=== PATIENT | male | born 1995 | race Native Hawaiian/Other Pacific Islander ===

== ENCOUNTER 2017-11-26 18:01 | Emergency (ER) | payer OTHER ==
[2017-11-26 21:27] LABS: BASO % 0.5 % (0.0-1.0); EOS # 0.1 10^3/uL (0.0-0.50); EOS % 0.9 % (0.0-3.0); HEMATOCRIT 48.3 % (42.0-52.0); HEMOGLOBIN 16.5 g/dl (13.5-17.5); IMMATURE GRANULOCYTE % 0.2 % (0-3.0); LYMPH # 2.4 10^3/uL (1.5-6.5); LYMPH % 27.9 % (24.0-44.0); MEAN CORPUSCULAR HEMOGLOBIN 30.9 pg (27.0-33.0); MEAN CORPUSCULAR HGB CONC 34.2 g/dl (32.0-36.5); MEAN CORPUSCULAR VOLUME 90.4 fl (80.0-96.0); MONO # 1.3 10^3/uL (0.0-0.8); MONO % 14.4 % (0.0-5.0); NEUTROPHILS # 4.9 10^3/uL (1.8-7.7); NEUTROPHILS % 56.1 % (36.0-66.0); PLATELET COUNT, AUTOMATED 206 10^3/uL (150-450); RED BLOOD COUNT 5.34 10^6/uL (4.30-6.10); RED CELL DISTRIBUTION WIDTH 11.7 % (11.5-14.5); WHITE BLOOD COUNT 8.7 10^3/uL (4.0-10.0)
[2017-11-26] MEDS: NS 1,000 ML IV (21:30)
[2017-11-26] MEDS: ONDANSETRON 4MG/2ML VIAL (J2405) IV (21:30)
[2017-11-26] MEDS: KETOROLAC 30 MG/ML VIAL (J1885) IV (21:30)
[2017-11-26 21:51] LABS: CONTROL LINE MONO INT CTR LINE PRESENT; MONO SCRN NEGATIVE (NEGATIVE)
[2017-11-26 21:54] LABS: ERYTHROCYTE SEDIMENTATION RATE 4 mm/hr (0-15)
[2017-11-26 21:58] LABS: ANION GAP 8 MEQ/L (8-16); BLOOD UREA NITROGEN 12 MG/DL (7-18); C REACTIVE PROTEIN QUANTITATIV 2.13 MG/DL (0.00-0.30); CALCIUM LEVEL 9.3 MG/DL (8.5-10.1); CARBON DIOXIDE LEVEL 29 MEQ/L (21-32); CHLORIDE LEVEL 101 MEQ/L (98-107); CPK CREATINE PHOSPHOKINASE 104 U/L (39-308); GLOMERULAR FILTRATION RATE > 60.0 (>60); GLUCOSE, FASTING 83 MG/DL (70-100); POTASSIUM SERUM 4.1 MEQ/L (3.5-5.1); SODIUM LEVEL 138 MEQ/L (136-145)
== END 2017-11-26 23:35 | disposition home or self-care (01) ==
LOC: M ED 18:01
DX: M25.50 Pain in unspecified joint (principal); T50.B15A Adverse effect of smallpox vaccines, initial encounter; Y92.9 Unspecified place or not applicable; Y93.9 Activity, unspecified; R53.83 Other fatigue
CPT/HCPCS: J2405

== ENCOUNTER 2018-04-24 15:47 | Emergency (ER) | payer OTHER ==
[~2018-04-24] VITALS: Ht 172.7 cm; Wt 59.1 kg
[2018-04-24 15:47] VITALS: BP 129/60
[~2018-04-24 15:47] MED LIST: AUGM875T28 PO; NAPR-50 PO; TRIA1OI TOP
[2018-04-24] MEDS ORDERED: IBUP200C25 PO (15:57)
[2018-04-24] MEDS ORDERED: NYST50SS PO (17:00)
== END 2018-04-24 17:36 | disposition home or self-care (01) ==
LOC: M ED 15:47
DX: K12.0 Recurrent oral aphthae (principal)

== ENCOUNTER 2018-09-26 12:30 | Emergency (ER) | payer OTHER ==
[~2018-09-26] VITALS: Ht 172.7 cm; Wt 62.6 kg
[~2018-09-26 12:30] MED LIST changes: +IBUP200C25 PO; -NAPR-50 PO; +NAPR-837 PO; +NYST50SS PO
[2018-09-26] MEDS ORDERED: LIDOCAINE 2% MDV 20 ML VIAL SC ONE (16:45)
--- NOTE | 2018-09-26 17:28 | REPVR ---
EXAM: CT Orbits Without Contrast EXAM DATE/TIME: 09/26/2018 5:05 PM CLINICAL HISTORY: 23 years old, male; Injury or trauma; Injury history: Playing football and hit heads with another person; Initial encounter; Blunt trauma (contusions or hematomas) and laceration; Orbit/periorbital; Right; Without residual foreign body; Additional info: Hit eye TECHNIQUE: Imaging protocol: Computed tomography images of the orbits without contrast. Coronal and sagittal reformatted images were created and reviewed. Radiation optimization: All CT scans at this facility use at least one of these dose optimization techniques: automated exposure control; mA and/or kV adjustment per patient size (includes targeted exams where dose is matched to clinical indication); or iterative reconstruction. COMPARISON: No relevant prior studies available. FINDINGS: Orbits: No acute intraorbital abnormality. Globes are unremarkable. Sinuses: Normal. No air-fluid levels. Bones/joints: No acute fracture. Soft tissues: Right frontal, periorbital and paranasal edema. 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 Deviated nasal septum to the left with ipsilateral nasal spur. IMPRESSION: Right frontal, periorbital and paranasal edema. No fracture. Electronically signed by: Esa Espinoza On 09/26/2018 17:28:11 PM
[2018-09-26 18:51] VITALS: BP 131/82
== END 2018-09-26 18:58 | disposition home or self-care (01) ==
LOC: M ED 12:30
DX: S01.111A Laceration without foreign body of right eyelid and periocular area, initial encounter (principal); W50.0XXA Accidental hit or strike by another person, initial encounter; Y92.830 Public park as the place of occurrence of the external cause; Y93.61 Activity, american tackle football; F17.210 Nicotine dependence, cigarettes, uncomplicated